=== PATIENT | male | born 1940 | race Asian ===

== ENCOUNTER 2016-12-18 10:06 | Emergency (ER) | payer OTHER ==
[~2016-12-18] VITALS: Ht 170.2 cm; Wt 78.2 kg
[2016-12-18] MEDS ORDERED: FURO20 PO (10:25)
[2016-12-18] MEDS ORDERED: CARV25TA77 PO (10:25)
[2016-12-18 11:17] LABS: APPEARANCE,URINE CLEAR (CLEAR); GLUCOSE, URINE (UA) NEGATIVE (NEGATIVE); KETONES,URINE NEGATIVE (NEGATIVE); LEUKOCYTE ESTERASE ,URINE NEGATIVE (NEGATIVE); OCCULT BLOOD,URINE TRACE (NEGATIVE); PH,URINE 5.5 (5.0-8.0); PROTEIN,URINE POS 1+ (NEGATIVE)
[2016-12-18 11:18] LABS: ADD UA MICROSCOPIC YES
[2016-12-18 11:26] LABS: RBC,URINE 0-2 /HPF (0-2); SQUAMOUS EPITHELIAL CELL,UR Few /LPF (None Seen); WBC,URINE 0-2 /HPF (0-5)
[2016-12-18] MEDS ORDERED: TAMSULOSIN HCL 0.4 MG CAPSULE PO ONE (11:45)
[2016-12-18 13:33] VITALS: BP 162/74
== END 2016-12-18 13:36 | disposition home or self-care (01) ==
LOC: EMS 10:09
DX: R33.9 Retention of urine, unspecified (principal); N32.0 Bladder-neck obstruction; I13.0 Hypertensive heart and chronic kidney disease with heart failure and stage 1 through stage 4 chronic kidney disease, or unspecified chronic kidney disease; I50.9 Heart failure, unspecified; N18.1 Chronic kidney disease, stage 1; E78.00 Pure hypercholesterolemia, unspecified
CPT/HCPCS: 99283

== ENCOUNTER 2019-06-19 10:19 | Emergency (ER) | payer OTHER ==
[~2019-06-19] VITALS: Ht 172.7 cm; Wt 80.9 kg
[~2019-06-19 10:19] MED LIST: ASPI-728 PO; CARV6 PO; CHOL200016 PO; FURO20 PO
[2019-06-19 11:32] LABS: BASOPHILS % (AUTO) 0.5 % (0.0-2.0); EOSINOPHILS % (AUTO) 0.4 % (1.0-6.0); HEMATOCRIT 48.5 % (41-53); LYMPHOCYTES # (AUTO) 0.7 K/uL (1.0-4.8); LYMPHOCYTES % (AUTO) 16.8 % (22.0-44.0); MEAN CORPUSCULAR HEMOGLOBIN 32.9 pg (26.0-34.0); MEAN CORPUSCULAR VOLUME 100 fL (80-100); MONOCYTES # (AUTO) 0.4 K/uL (0.1-1.0); MONOCYTES % (AUTO) 9.6 % (2.0-9.0); NEUTROPHILS # (AUTO) 3.1 K/uL (1.8-7.7); NEUTROPHILS % (AUTO) 72.7 % (40.0-70.0); PLATELET COUNT (AUTO) 193 K/uL (150-450); RED BLOOD CELL COUNT(AUTO) 4.87 MIL/uL (4.50-5.90)
[2019-06-19 11:52] LABS: CALCIUM, TOTAL 9.1 mg/dL (8.8-10.5); CREATININE 1.57 mg/dL (0.60-1.30); POTASSIUM 3.8 mmol/L (3.5-5.1)
[2019-06-19 11:57] LABS: ALBUMIN 3.4 g/dL (3.4-5.0); BILIRUBIN,TOTAL 1.8 mg/dL (0.1-1.0); TOTAL PROTEIN, SERUM 7.7 g/dL (6.4-8.2)
[2019-06-19 12:32] LABS: LACTIC ACID 1.9 mmol/L (0.4-2.0)
[2019-06-19 13:35] VITALS: BP 120/65
[2019-06-19] MEDS ORDERED: CHOL100018 PO (13:37)
[2019-06-19] MEDS ORDERED: ACETAMINOPHEN 325 MG TABLET PO PRN ×2 (13:45→14:00)
[2019-06-19] MEDS ORDERED: FUROSEMIDE 40 MG/4 ML VIAL IVP ONE (13:45)
[2019-06-19] MEDS ORDERED: ONDANSETRON HCL 4 MG/2 ML VIAL IVP PRN (13:45)
[2019-06-19] MEDS ORDERED: 0.9% SODIUM CHLORIDE 10 ML SYRINGE IVP PRN (13:45)
[2019-06-19] MEDS ORDERED: ASPIRIN 81 MG CHEWABLE TABLET PO SCH (14:00)
[2019-06-19] MEDS ORDERED: HEPARIN SODIUM,PORCINE 5,000 UNITS/ML VIAL SQ SCH (16:00)
[2019-06-19] MEDS ORDERED: ATORVASTATIN CALCIUM 20 MG TABLET PO SCH (21:00)
[2019-06-19] MEDS ORDERED: DOCUSATE SODIUM 100 MG CAPSULE PO SCH (21:00)
[2019-06-19] MEDS ORDERED: FUROSEMIDE 40 MG/4 ML VIAL IVP SCH (21:00)
[2019-06-19] MEDS ORDERED: CARVEDILOL 6.25 MG TABLET PO SCH (21:00)
[2019-06-20] MEDS ORDERED: FAMOTIDINE 20 MG TABLET PO SCH (09:00)
== END 2019-06-19 14:13 | disposition other institution (70) ==
LOC: EMS 10:21
DX: I83.013 Varicose veins of right lower extremity with ulcer of ankle (principal); I83.025 Varicose veins of left lower extremity with ulcer other part of foot; I13.0 Hypertensive heart and chronic kidney disease with heart failure and stage 1 through stage 4 chronic kidney disease, or unspecified chronic kidney disease; N18.1 Chronic kidney disease, stage 1; I50.9 Heart failure, unspecified; R60.0 Localized edema; E78.00 Pure hypercholesterolemia, unspecified; I25.10 Atherosclerotic heart disease of native coronary artery without angina pectoris; Z95.1 Presence of aortocoronary bypass graft; Z95.0 Presence of cardiac pacemaker; Z79.899 Other long term (current) drug therapy; Z98.890 Other specified postprocedural states
CPT/HCPCS: 83605; 93970; J1940

== ENCOUNTER 2020-08-25 11:09 | Inpatient (IN) | payer MEDICARE, OTHER ==
[~2020-08-25] VITALS: Ht 172.7 cm; Wt 72.7 kg
[~2020-08-25 11:09] MED LIST changes: +ACET-2247 PO; -ASPI-728 PO; +BISA10SU11 PR; -CARV6 PO; -CHOL200016 PO; -FURO20 PO; +FURO40 PO; +HEPA500018 SQ; +LOSA50TA37 PO; +MOM30 PO; +PIPE2.2515 IV; +VANC125C12 IV
[2020-08-25] MEDS ORDERED: ONDANSETRON HCL 4 MG/2 ML VIAL IVP PRN ×2 (12:00→16:45)
[2020-08-25] MEDS ORDERED: ACETAMINOPHEN 325 MG TABLET PO PRN ×3 (12:00→17:45)
[2020-08-25 12:14] LABS: COVID AG,FIA SOURCE NASOPHARYNGEAL
[2020-08-25 12:19] LABS: BASOPHILS % (AUTO) 0.1 % (0.0-2.0); EOSINOPHILS % (AUTO) 0 % (1.0-6.0); HEMATOCRIT 43.7 % (41-53); HEMOGLOBIN 13.4 g/dL (13.5-17.5); LYMPHOCYTES # (AUTO) 0.3 K/uL (1.0-4.8); LYMPHOCYTES % (AUTO) 5.5 % (22.0-44.0); MEAN CORPUSCULAR HEMOGLOBIN 33.6 pg (26.0-34.0); MEAN CORPUSCULAR HGB CONC 30.7 G/dL (31.0-37.0); MEAN CORPUSCULAR VOLUME 109 fL (80-100); MONOCYTES # (AUTO) 0.7 K/uL (0.1-1.0); MONOCYTES % (AUTO) 11.5 % (2.0-9.0); NEUTROPHILS # (AUTO) 4.9 K/uL (1.8-7.7); NEUTROPHILS % (AUTO) 82.9 % (40.0-70.0); PLATELET COUNT (AUTO) 107 K/uL (150-450); RED CELL DISTRIBUTION WIDTH 15.5 % (11.5-14.5)
[2020-08-25 12:46] LABS: ALBUMIN 2.8 g/dL (3.4-5.0); BILIRUBIN,TOTAL 0.7 mg/dL (0.1-1.0); CALCIUM, TOTAL 8.5 mg/dL (8.8-10.5); CREATININE 1.7 mg/dL (0.60-1.30); TOTAL PROTEIN, SERUM 6.9 g/dL (6.4-8.2)
[2020-08-25 14:18] VITALS: BP 127/70
[2020-08-25] MEDS ORDERED: MORPHINE SULFATE 2 MG/ML SYRINGE IVP PRN (16:45)
[2020-08-25] MEDS ORDERED: BISACODYL 10 MG RECTAL RECTAL SUPPOSITORY PR PRN (16:45)
[2020-08-25] MEDS ORDERED: ZOLPIDEM TARTRATE 5 MG TABLET PO PRN (16:45)
[2020-08-25] MEDS ORDERED: MAGNESIUM HYDROXIDE SUSPENSION 30 ML UDCUP PO PRN (16:45)
[2020-08-25] MEDS ORDERED: IPRATROPIUM BROMIDE 0.5 MG/2.5 ML NEB SOLUTION NEB PRN (16:45)
[2020-08-25] MEDS ORDERED: HYDROCODONE/ACETAMINOPHEN 5-325 MG TABLET PO PRN (16:45)
[2020-08-25] MEDS ORDERED: ALBUTEROL SULFATE 2.5 MG/0.5 ML NEB SOLUTION NEB PRN (16:45)
[2020-08-25 16:50] VITALS: BP 113/63
[2020-08-25] MEDS ORDERED: *CLINICAL-CEFEPIME DOSING CLINICAL ONE (17:00)
[2020-08-25] MEDS ORDERED: FURO20 PO (17:37)
[2020-08-25] MEDS ORDERED: CARV6 PO (17:37)
[2020-08-25] MEDS ORDERED: MELA5TAB3 PO (17:37)
[2020-08-25] MEDS ORDERED: VANC1IV IV (17:37)
[2020-08-25] MEDS ORDERED: CHOL100044 PO (17:37)
[2020-08-25] MEDS ORDERED: DOXY-354 PO (17:37)
[2020-08-25] MEDS ORDERED: LOSA50TA37 PO (17:37)
[2020-08-25] MEDS ORDERED: ASPI-1450 PO (17:37)
[2020-08-25] MEDS ORDERED: PRED20 PO (17:37)
[2020-08-25] MEDS ORDERED: ACET-784 PO (17:37)
[2020-08-25] MEDS ORDERED: MULT-248 PO (17:37)
[2020-08-25] MEDS ORDERED: SODIUM CHLORIDE 0.9% 1,000 ML ONE (18:06)
[2020-08-25] MEDS: CEFEPIME HCL 2 GM in DEXTROSE 5%-WATER 50 ML IV SCH (18:10)
[2020-08-25] MEDS ORDERED: VANCOMYCIN HCL 1 GM/D5% WATER 200 ML IV ONE (18:15)
[2020-08-25] MEDS ORDERED: VANCOMYCIN HCL/D5W 1 GM/200 ML BAG IV SCH (20:00)
[2020-08-25] MEDS: FUROSEMIDE 40 MG/4 ML VIAL IVP SCH (20:41)
[2020-08-25] MEDS: DOCUSATE SODIUM 100 MG CAPSULE PO SCH (20:41)
[2020-08-25] MEDS: CARVEDILOL 6.25 MG TABLET PO SCH (20:41)
[2020-08-25] MEDS: DOXYCYCLINE HYCLATE 100 MG TABLET PO SCH (20:42)
[2020-08-25] MEDS: MELATONIN 5 MG TABLET PO SCH (20:42)
[2020-08-25 21:00] VITALS: BP 126/73
[2020-08-25] MEDS ORDERED: FUROSEMIDE 20 MG TABLET PO SCH (21:00)
[2020-08-25 23:55] VITALS: BP 133/70
[2020-08-26] MEDS ORDERED: HEPARIN SODIUM,PORCINE 5,000 UNITS/ML VIAL SQ SCH
[2020-08-26 04:08] VITALS: BP 124/71
[2020-08-26 06:47] LABS: CALCIUM, TOTAL 8.4 mg/dL (8.8-10.5); CREATININE 1.73 mg/dL (0.60-1.30); POTASSIUM 4.5 mmol/L (3.5-5.1)
[2020-08-26 08:00] VITALS: BP 124/73
[2020-08-26] MEDS: DOCUSATE SODIUM 100 MG CAPSULE PO SCH ×2 (09:00→19:53)
[2020-08-26] MEDS: FUROSEMIDE 40 MG/4 ML VIAL IVP SCH ×2 (09:23→20:37)
[2020-08-26] MEDS: VANCOMYCIN HCL 750 MG in DEXTROSE 5%-WATER 250 ML IV SCH (09:23)
[2020-08-26] MEDS: DOXYCYCLINE HYCLATE 100 MG TABLET PO SCH ×2 (09:24→20:30)
[2020-08-26] MEDS: PredniSONE 20 MG TABLET PO SCH (09:24)
[2020-08-26] MEDS: LOSARTAN POTASSIUM 50 MG TABLET PO SCH (09:24)
[2020-08-26] MEDS: ASPIRIN 81 MG CHEWABLE TABLET PO SCH (09:24)
[2020-08-26] MEDS: CHOLECALCIFEROL (VIT D3) 1,000 UNITS [25 MCG] TABLET PO SCH (09:24)
[2020-08-26] MEDS: CARVEDILOL 6.25 MG TABLET PO SCH ×2 (09:24→20:30)
[2020-08-26 15:26] VITALS: BP 125/68
[2020-08-26] MEDS: CEFEPIME HCL 2 GM in DEXTROSE 5%-WATER 50 ML IV SCH (18:02)
[2020-08-26 20:07] VITALS: BP 119/44
[2020-08-26] MEDS: MELATONIN 5 MG TABLET PO SCH (20:30)
[2020-08-26 23:04] VITALS: BP 118/63
[2020-08-27 04:10] VITALS: BP 131/67
[2020-08-27 07:34] VITALS: BP 133/72
[2020-08-27] MEDS: VANCOMYCIN HCL 750 MG in DEXTROSE 5%-WATER 250 ML IV SCH (08:53)
[2020-08-27] MEDS: FUROSEMIDE 40 MG/4 ML VIAL IVP SCH (08:53)
[2020-08-27] MEDS: PredniSONE 20 MG TABLET PO SCH (08:56)
[2020-08-27] MEDS: DOCUSATE SODIUM 100 MG CAPSULE PO SCH (08:56)
[2020-08-27] MEDS: ASPIRIN 81 MG CHEWABLE TABLET PO SCH (08:56)
[2020-08-27] MEDS: CARVEDILOL 6.25 MG TABLET PO SCH (08:57)
[2020-08-27] MEDS: LOSARTAN POTASSIUM 50 MG TABLET PO SCH (08:57)
[2020-08-27] MEDS: CHOLECALCIFEROL (VIT D3) 1,000 UNITS [25 MCG] TABLET PO SCH (08:57)
[2020-08-27] MEDS: DOXYCYCLINE HYCLATE 100 MG TABLET PO SCH (08:57)
[2020-08-27 09:16] LABS: CALCIUM, TOTAL 8.7 mg/dL (8.8-10.5); CREATININE 1.74 mg/dL (0.60-1.30); POTASSIUM 4.5 mmol/L (3.5-5.1)
[2020-08-27] MEDS ORDERED: PRED10 PO ×2 (12:15→12:16)
[2020-08-27] MEDS ORDERED: PRED20 PO (12:16)
[2020-08-27] MEDS ORDERED: AUD NEB (12:17)
[2020-08-27] MEDS ORDERED: HYDR-4723 PO (12:17)
[2020-08-27] MEDS ORDERED: IPRNEB IH (12:19)
[2020-08-27] MEDS ORDERED: MOM30 PO (12:20)
[2020-08-27] MEDS ORDERED: MORP2SYR7 IVP (12:22)
[2020-08-27] MEDS ORDERED: ZOLP-280 PO (12:23)
[2020-08-27] MEDS ORDERED: ONDA4VIA22 IVP (12:23)
[2020-08-27 16:01] VITALS: BP 125/66
== END 2020-08-27 17:30 | DRG 602 ==
LOC: EMS 11:12 → 6N 12:34
PROVIDERS: ADMIT Hospitalist; ATTEND Hospitalist
DX: L03.115 Cellulitis of right lower limb (principal); E43 Unspecified severe protein-calorie malnutrition; I50.23 Acute on chronic systolic (congestive) heart failure; I13.0 Hypertensive heart and chronic kidney disease with heart failure and stage 1 through stage 4 chronic kidney disease, or unspecified chronic kidney disease; L97.828 Non-pressure chronic ulcer of other part of left lower leg with other specified severity; L97.819 Non-pressure chronic ulcer of other part of right lower leg with unspecified severity; L03.116 Cellulitis of left lower limb; I83.009 Varicose veins of unspecified lower extremity with ulcer of unspecified site; D69.6 Thrombocytopenia, unspecified; E78.00 Pure hypercholesterolemia, unspecified; I25.10 Atherosclerotic heart disease of native coronary artery without angina pectoris; E78.5 Hyperlipidemia, unspecified; B96.1 Klebsiella pneumoniae [K. pneumoniae] as the cause of diseases classified elsewhere; I25.5 Ischemic cardiomyopathy; K21.9 Gastro-esophageal reflux disease without esophagitis; N18.9 Chronic kidney disease, unspecified; Z20.822 Contact with and (suspected) exposure to COVID-19; Z68.24 Body mass index [BMI] 24.0-24.9, adult; Z86.79 Personal history of other diseases of the circulatory system; Z79.82 Long term (current) use of aspirin; Z79.899 Other long term (current) drug therapy; Z95.0 Presence of cardiac pacemaker; Z95.1 Presence of aortocoronary bypass graft
CPT/HCPCS: 71045; 80048; 80053; 83880; 85025; 87070; 87077; 87205; 87426; 93306; 93925; 99285; A9575; J0692; J1644; J1940; J3370; J7030; J7060; 36415-L1; 36415-TC